=== PATIENT | female | born 1955 | race Caucasian/White ===

== ENCOUNTER 2020-09-04 20:55 | Inpatient (IN) ==
[2020-09-04] MEDS ORDERED: NS 0.9% 1000 ml BAG 1,000 ML IV ONE ×2 (21:24→22:24)
[2020-09-04 21:43] LABS: Hematocrit 33 % (35-47); Hemoglobin 11.1 g/dL (12.0-16.0); Mean Corpuscular HGB Conc 34 g/dL (31-36); Mean Corpuscular Hemoglobin 36 pg (27-31); Mean Corpuscular Volume 108 fL (80-97); Mean Platelet Volume 6.5 fL (7.4-10.4); Platelet Count 164 10^3/uL (150-450); Red Blood Count 3.07 10^6 /uL (3.70-4.87); Red Cell Distribution Width 14 % (10-15)
[2020-09-04 21:56] LABS: ALT 18 U/L (7-52); AST 42 U/L (13-39); Albumin 3.2 g/dL (3.2-5.2); Alcohol, S < 10 mg/dL (<10); Alkaline Phosphatase 189 U/L (35-149); Anion Gap 14 mmol/L (2-11); Blood Urea Nitrogen 27 mg/dL (6-24); CO2 Carbon Dioxide 23 mmol/L (22-32); Calcium 9.3 mg/dL (8.6-10.3); Chloride 103 mmol/L (101-111); Creatine Kinase 79 U/L (10-223); EGFR African American 80.1 (>60); EGFR Non-African American 66.2 (>60); Globulin 3.3 g/dL (2-4); Glucose 134 mg/dL (70-100); Magnesium 1.4 mg/dL (1.9-2.7); Sodium 140 mmol/L (135-145); Total Protein 6.5 g/dL (6.4-8.9)
[2020-09-04 21:57] LABS: ABS Basophils 0.1 10^3/ul (0-0.2); ABS Lymphocytes 1.3 10^3/ul (1.0-4.8); ABS Monocytes 0.8 10^3/ul (0-0.8); ABS Neutrophils 9.8 10^3/ul (1.5-7.7); Eosinophil % 0.2 %; Lymphocyte % 11.2 %; Nucleated Red Blood Cells % 0.1
[2020-09-04 21:59] LABS: Troponin I 0.01 ng/mL (<0.03)
[2020-09-04 22:01] LABS: CKMB ng/mL 2.5 ng/mL (0.6-6.3)
[2020-09-04 22:12] LABS: TSH Ultra Thyroid Stim Horm 6.11 mcIU/mL (0.34-5.60)
[2020-09-04] MEDS ORDERED: Magnesium Sulfate 2 gm BAG 2 GM/50 ML BAG IVPB ONE (22:25)
[2020-09-04 23:15] LABS: Urine Appearance Clear; Urine Bilirubin Negative (Negative); Urine Blood Negative (Negative); Urine Color Amber; Urine Glucose Negative (Negative); Urine Ketones Trace (Negative); Urine Nitrite Negative (Negative); Urine Protein Negative (Negative); Urine Specific Gravity 1.018 (1.002-1.030); Urine Urobilinogen Positive (Negative)
[2020-09-04 23:53] LABS: Activated Partial Thrombo Time 27.8 seconds (26.0-38.0); INR 1.05 (0.82-1.09)
[2020-09-05 00:11] LABS: Acetaminophen < 15 mcg/mL; Salicylate < 2.50 mg/dL (<30)
[2020-09-05 02:47] LABS: C Reactive Protein 28.64 mg/L (<8.01)
[2020-09-05] MEDS ORDERED: Lactated Ringers 1000 ml BAG 1,000 ML IV SCH (03:00)
[2020-09-05 03:27] LABS: Urine Benzodiazepine Screen Presumptive Positive (None Detect); Urine Cannabinoids Screen None Detected (None Detect); Urine Opiates Screen None Detected (None Detect)
[2020-09-05 03:40] LABS: Erythrocyte Sed Rate 28 mm/Hr (0-29)
[2020-09-05 04:00] LABS: Vitamin B12 1286 pg/mL (180-914)
[2020-09-05] MEDS ORDERED: Lorazepam PYXIS KEY ONE ×3 (04:29→17:19)
[2020-09-05] MEDS: LORazepam 2 mg VIAL 1 ml IV PUSH SCH ×3 (04:32→17:22)
[2020-09-05] MEDS: Multivitamins/Minerals TAB PO SCH ×2 (04:32→11:28)
[2020-09-05 05:22] LABS: ABS Basophils 0.1 10^3/ul (0-0.2); ABS Lymphocytes 1.4 10^3/ul (1.0-4.8); ABS Monocytes 0.7 10^3/ul (0-0.8); ABS Neutrophils 8.2 10^3/ul (1.5-7.7); Eosinophil % 0.2 %; Hematocrit 30 % (35-47); Hemoglobin 10.1 g/dL (12.0-16.0); Lymphocyte % 13.5 %; Mean Corpuscular HGB Conc 34 g/dL (31-36); Mean Corpuscular Hemoglobin 37 pg (27-31); Mean Corpuscular Volume 109 fL (80-97); Platelet Count 143 10^3/uL (150-450); Red Blood Count 2.75 10^6 /uL (3.70-4.87); Red Cell Distribution Width 14 % (10-15); White Blood Count 10.5 10^3/uL (3.5-10.8)
[2020-09-05 05:36] LABS: Albumin 2.9 g/dL (3.2-5.2); Calcium 8.1 mg/dL (8.6-10.3); EGFR African American 110.7 (>60); EGFR Non-African American 91.5 (>60); Globulin 2.9 g/dL (2-4); Potassium 3.4 mmol/L (3.5-5.0); Total Protein 5.8 g/dL (6.4-8.9)
[2020-09-05] MEDS ORDERED: Fluticasone NASAL SPRAY 50MCG 16 gm SPRAY BTL INTRANASAL PRN (05:58)
[2020-09-05] MEDS ORDERED: Ondansetron ODT 4 mg TAB 4 MG TAB PO PRN (05:58)
[2020-09-05] MEDS ORDERED: Thiamine 100 MG/ML 2 ml VIAL 250 MG in NS 0.9% 100 ml BAG 100 ML IV SCH (06:00)
[2020-09-05] MEDS ORDERED: Calcium Carb (TUMS) 500 mg CHEW TAB PO PRN (06:08)
[2020-09-05] MEDS ORDERED: Potassium Chlor 20 meq TAB.ER PO ONE (07:00)
[2020-09-05] MEDS ORDERED: Azithromycin 500 mg/250 ml NS 500 MG/250 ML BAG IVPB SCH (07:30)
[2020-09-05] MEDS: cefTRIAXone 1 gm/50 mL NS BAG 1 GM/50 ML BAG IVPB SCH (07:36)
[2020-09-05 07:48] LABS: Magnesium 1.9 mg/dL (1.9-2.7)
[2020-09-05 08:23] LABS: Free T3 3.1 pg/mL (2.5-3.9)
[2020-09-05] MEDS: Enoxaparin 40 MG/0.4 ML SYR SUBCUT SCH (11:28)
[2020-09-05] MEDS: Polyethyl Glycol/Propylene Gly OPHTH.SOLN BOTH EYES SCH (11:37)
[2020-09-05] MEDS: Thiamine 100 MG/ML 2 ml VIAL 500 MG in NS 0.9% 250 ml 250 ML IV SCH ×2 (15:37→22:19)
[2020-09-05] MEDS: Potassium Chlor 20 meq TAB.ER PO SCH (18:15)
[2020-09-06 05:27] LABS: ABS Eosinophils 0.1 10^3/ul (0-0.6); ABS Lymphocytes 1.7 10^3/ul (1.0-4.8); ABS Monocytes 0.6 10^3/ul (0-0.8); ABS Neutrophils 4.7 10^3/ul (1.5-7.7); Eosinophil % 1.5 %; Hematocrit 30 % (35-47); Lymphocyte % 23.3 %; Mean Corpuscular HGB Conc 34 g/dL (31-36); Mean Corpuscular Hemoglobin 37 pg (27-31); Mean Corpuscular Volume 109 fL (80-97); Mean Platelet Volume 6.8 fL (7.4-10.4); Nucleated Red Blood Cells % 0.1; Platelet Count 143 10^3/uL (150-450); Red Blood Count 2.71 10^6 /uL (3.70-4.87); Red Cell Distribution Width 14 % (10-15); White Blood Count 7.1 10^3/uL (3.5-10.8)
[2020-09-06 05:42] LABS: Albumin 2.7 g/dL (3.2-5.2); Albumin/Globulin Ratio 0.9 (1-3); Calcium 8.2 mg/dL (8.6-10.3); EGFR African American 137.1 (>60); EGFR Non-African American 113.3 (>60); Globulin 2.9 g/dL (2-4); Potassium 3.3 mmol/L (3.5-5.0); Total Bilirubin 0.8 mg/dL (0.2-1.0); Total Protein 5.6 g/dL (6.4-8.9)
[2020-09-06] MEDS ORDERED: Potassium Chlor 10 meq TAB PO ONE (07:35)
[2020-09-06 09:35] LABS: Free T4 1.18 ng/dL (0.61-1.12)
[2020-09-06] MEDS: Potassium Chlor 20 meq TAB.ER PO SCH (10:00)
[2020-09-06] MEDS: Thiamine 100 MG/ML 2 ml VIAL 500 MG in NS 0.9% 250 ml 250 ML IV SCH ×3 (10:00→21:24)
[2020-09-06] MEDS: Multivitamins/Minerals TAB PO SCH (10:01)
[2020-09-06] MEDS: Polyethyl Glycol/Propylene Gly OPHTH.SOLN BOTH EYES SCH (10:02)
[2020-09-06] MEDS: Enoxaparin 40 MG/0.4 ML SYR SUBCUT SCH (10:02)
[2020-09-06] MEDS: cefTRIAXone 1 gm/50 mL NS BAG 1 GM/50 ML BAG IVPB SCH (10:22)
[2020-09-07 07:02] LABS: ABS Basophils 0.1 10^3/ul (0-0.2); ABS Eosinophils 0.1 10^3/ul (0-0.6); ABS Lymphocytes 1.5 10^3/ul (1.0-4.8); ABS Monocytes 0.5 10^3/ul (0-0.8); ABS Neutrophils 4.4 10^3/ul (1.5-7.7); Eosinophil % 1.5 %; Hematocrit 30 % (35-47); Hemoglobin 10.2 g/dL (12.0-16.0); Lymphocyte % 22.7 %; Mean Corpuscular HGB Conc 34 g/dL (31-36); Mean Corpuscular Hemoglobin 37 pg (27-31); Mean Corpuscular Volume 108 fL (80-97); Mean Platelet Volume 6.9 fL (7.4-10.4); Nucleated Red Blood Cells % 0.1; Platelet Count 157 10^3/uL (150-450); Red Cell Distribution Width 14 % (10-15); White Blood Count 6.6 10^3/uL (3.5-10.8)
[2020-09-07 07:23] LABS: Calcium 8.4 mg/dL (8.6-10.3); EGFR Non-African American 82.6 (>60); Potassium 3.4 mmol/L (3.5-5.0)
[2020-09-07] MEDS: Enoxaparin 40 MG/0.4 ML SYR SUBCUT SCH (08:29)
[2020-09-07] MEDS: Multivitamins/Minerals TAB PO SCH (08:29)
[2020-09-07] MEDS: Polyethyl Glycol/Propylene Gly OPHTH.SOLN BOTH EYES SCH (08:29)
[2020-09-07] MEDS: Potassium Chlor 20 meq TAB.ER PO SCH (08:29)
[2020-09-07] MEDS: Thiamine 100 MG/ML 2 ml VIAL 500 MG in NS 0.9% 250 ml 250 ML IV SCH ×2 (08:29→16:11)
[2020-09-07] MEDS ORDERED: Potassium Chlor 20 meq TAB.ER PO ONE (10:21)
[2020-09-08 06:13] LABS: Calcium 8.6 mg/dL (8.6-10.3); EGFR African American 123.8 (>60); EGFR Non-African American 102.3 (>60); Potassium 3.7 mmol/L (3.5-5.0)
[2020-09-08 06:53] LABS: ABS Eosinophils 0.1 10^3/ul (0-0.6); ABS Lymphocytes 1.5 10^3/ul (1.0-4.8); ABS Monocytes 0.7 10^3/ul (0-0.8); ABS Neutrophils 4.7 10^3/ul (1.5-7.7); Eosinophil % 1.7 %; Hematocrit 30 % (35-47); Hemoglobin 10.3 g/dL (12.0-16.0); Lymphocyte % 21.1 %; Mean Corpuscular HGB Conc 34 g/dL (31-36); Mean Corpuscular Hemoglobin 37 pg (27-31); Mean Corpuscular Volume 108 fL (80-97); Nucleated Red Blood Cells % 0.1; Platelet Count 186 10^3/uL (150-450); Red Blood Count 2.78 10^6 /uL (3.70-4.87); Red Cell Distribution Width 15 % (10-15)
[2020-09-08] MEDS: Enoxaparin 40 MG/0.4 ML SYR SUBCUT SCH (09:15)
[2020-09-08] MEDS: Multivitamins/Minerals TAB PO SCH (09:15)
[2020-09-08] MEDS: Polyethyl Glycol/Propylene Gly OPHTH.SOLN BOTH EYES SCH (09:15)
[2020-09-08] MEDS: Potassium Chlor 20 meq TAB.ER PO SCH (09:15)
[2020-09-08] MEDS ORDERED: LORazepam 2 mg VIAL 1 ml IV PUSH ONE (22:35)
[2020-09-08] MEDS ORDERED: Lorazepam PYXIS KEY PRN (22:35)
[2020-09-08] MEDS ORDERED: LORazepam 2 mg VIAL 1 ml ONE (22:38)
[2020-09-09] MEDS: Polyethyl Glycol/Propylene Gly OPHTH.SOLN BOTH EYES SCH (09:21)
[2020-09-09] MEDS: Multivitamins/Minerals TAB PO SCH (09:23)
[2020-09-09] MEDS: Enoxaparin 40 MG/0.4 ML SYR SUBCUT SCH (09:24)
[2020-09-09] MEDS: Potassium Chlor 20 meq TAB.ER PO SCH (09:24)
[2020-09-09] MEDS ORDERED: Nicotine GUM 2MG FRUIT FLAVOR PO PRN (14:26)
[2020-09-10] MEDS: Magnesium Hydroxide LIQ 30 ML UDC PO PRN ×2 (08:05→20:06)
[2020-09-10] MEDS: Nicotine PATCH 21 MG/24 HR PATCH TRANSDERM SCH (08:07)
[2020-09-10] MEDS: Enoxaparin 40 MG/0.4 ML SYR SUBCUT SCH (08:07)
[2020-09-10] MEDS: Multivitamins/Minerals TAB PO SCH (08:08)
[2020-09-10] MEDS: Potassium Chlor 20 meq TAB.ER PO SCH (08:08)
[2020-09-10] MEDS: Polyethyl Glycol/Propylene Gly OPHTH.SOLN BOTH EYES SCH (08:15)
[2020-09-10] MEDS: Senna TAB 8.6 mg TAB PO PRN (20:06)
[2020-09-11 05:01] LABS: Hematocrit 30 % (35-47); Hemoglobin 10.2 g/dL (12.0-16.0); Mean Corpuscular HGB Conc 34 g/dL (31-36); Mean Corpuscular Hemoglobin 36 pg (27-31); Mean Corpuscular Volume 107 fL (80-97); Mean Platelet Volume 7.4 fL (7.4-10.4); Platelet Count 288 10^3/uL (150-450); Red Cell Distribution Width 15 % (10-15); White Blood Count 9.3 10^3/uL (3.5-10.8)
[2020-09-11 05:14] LABS: C Reactive Protein 27.5 mg/L (<8.01); Calcium 8.9 mg/dL (8.6-10.3); EGFR African American 103.3 (>60); EGFR Non-African American 85.4 (>60); Magnesium 1.6 mg/dL (1.9-2.7); Potassium 3.5 mmol/L (3.5-5.0)
[2020-09-11] MEDS: Nicotine PATCH 21 MG/24 HR PATCH TRANSDERM SCH (08:33)
[2020-09-11] MEDS: Enoxaparin 40 MG/0.4 ML SYR SUBCUT SCH (08:33)
[2020-09-11] MEDS: Multivitamins/Minerals TAB PO SCH (08:34)
[2020-09-11] MEDS: Potassium Chlor 20 meq TAB.ER PO SCH ×2 (08:34→08:46)
[2020-09-11] MEDS: Polyethyl Glycol/Propylene Gly OPHTH.SOLN BOTH EYES SCH (08:37)
[2020-09-11 10:49] LABS: Urine Appearance Cloudy; Urine Bilirubin Negative (Negative); Urine Blood Negative (Negative); Urine Color Amber; Urine Glucose Negative (Negative); Urine Ketones Negative (Negative); Urine Nitrite Negative (Negative); Urine Protein Negative (Negative); Urine Specific Gravity 1.015 (1.002-1.030); Urine Urobilinogen Negative (Negative)
[2020-09-11] MEDS: Magnesium Hydroxide LIQ 30 ML UDC PO PRN (16:00)
[2020-09-11] MEDS ORDERED: Magnesium Hydroxide LIQ 30 ML UDC PO PRN (18:26)
[2020-09-11] MEDS ORDERED: Senna TAB 8.6 mg TAB PO PRN (18:26)
[2020-09-11] MEDS: Senna TAB 8.6 mg TAB PO PRN (22:03)
[2020-09-12 04:41] LABS: HIV 4th Generation Nonreactive (Nonreactive)
[2020-09-12 04:57] LABS: Thyroid Peroxidase Antibodies 0.27 IU/mL (<9)
[2020-09-12] MEDS: Enoxaparin 40 MG/0.4 ML SYR SUBCUT SCH (09:52)
[2020-09-12] MEDS: Polyethyl Glycol/Propylene Gly OPHTH.SOLN BOTH EYES SCH (09:53)
[2020-09-12] MEDS: Nicotine PATCH 21 MG/24 HR PATCH TRANSDERM SCH (09:53)
[2020-09-12] MEDS: Multivitamins/Minerals TAB PO SCH (09:56)
[2020-09-12] MEDS: Potassium Chlor 20 meq TAB.ER PO SCH (09:56)
[2020-09-12 11:23] LABS: TSH Ultra Thyroid Stim Horm 6.86 mcIU/mL (0.34-5.60)
[2020-09-12 11:25] LABS: Free T4 1.06 ng/dL (0.61-1.12)
[2020-09-12] MEDS: Senna TAB 8.6 mg TAB PO PRN (20:16)
[2020-09-12] MEDS: Magnesium Hydroxide LIQ 30 ML UDC PO PRN (20:18)
[2020-09-12 20:50] LABS: Magnesium 1.7 mg/dL (1.9-2.7)
[2020-09-13] MEDS ORDERED: Magnesium Sulfate 2 gm BAG 2 GM/50 ML BAG IVPB ONE (06:20)
[2020-09-13] MEDS: Potassium Chlor 20 meq TAB.ER PO SCH (08:00)
[2020-09-13] MEDS: Multivitamins/Minerals TAB PO SCH (08:00)
[2020-09-13] MEDS: Enoxaparin 40 MG/0.4 ML SYR SUBCUT SCH (08:00)
[2020-09-13] MEDS: Nicotine PATCH 21 MG/24 HR PATCH TRANSDERM SCH (08:01)
[2020-09-13] MEDS: Polyethyl Glycol/Propylene Gly OPHTH.SOLN BOTH EYES SCH (08:08)
[2020-09-14] MEDS: Multivitamins/Minerals TAB PO SCH (10:32)
[2020-09-14] MEDS: Nicotine PATCH 21 MG/24 HR PATCH TRANSDERM SCH (10:32)
[2020-09-14] MEDS: Potassium Chlor 20 meq TAB.ER PO SCH (10:32)
[2020-09-14] MEDS: Enoxaparin 40 MG/0.4 ML SYR SUBCUT SCH (10:33)
[2020-09-14] MEDS: Polyethyl Glycol/Propylene Gly OPHTH.SOLN BOTH EYES SCH (10:33)
[2020-09-14 15:52] VITALS: BP 143/89
[2020-09-18 10:07] LABS: Anti-Glial/Neuronal Nuc Ab-1 A Negative titer (<1:240); Anti-Neuronal Nuclear Ab Type1 Negative titer (<1:240); Anti-Neuronal Nuclear Ab Type2 Negative titer (<1:240); Anti-Neuronal Nuclear Ab Type3 Negative titer (<1:240); CRMP-5 IgG Antibody Negative titer (<1:240); Purkinje Cell Cytoplasm Typ Tr Negative titer (<1:240); Purkinje Cell Cytoplasm Type 1 Negative titer (<1:240); Purkinje Cell Cytoplasm Type 2 Negative titer (<1:240)
== END 2020-09-14 16:15 | DRG 775 ==
LOC: ED 20:55 → MED 09-05 02:06
PROVIDERS: ADMIT Pediatrics; ATTEND Internal Medicine

== ENCOUNTER 2020-09-20 20:35 | Inpatient (IN) ==
[2020-09-20 21:15] LABS: ABS Basophils 0.1 10^3/ul (0-0.2); ABS Eosinophils 0.1 10^3/ul (0-0.6); ABS Lymphocytes 1.9 10^3/ul (1.0-4.8); ABS Monocytes 0.8 10^3/ul (0-0.8); ABS Neutrophils 6.2 10^3/ul (1.5-7.7); Eosinophil % 1.6 %; Hematocrit 27 % (35-47); Hemoglobin 9.1 g/dL (12.0-16.0); Lymphocyte % 20.5 %; Mean Corpuscular HGB Conc 33 g/dL (31-36); Mean Corpuscular Hemoglobin 36 pg (27-31); Mean Corpuscular Volume 109 fL (80-97); Mean Platelet Volume 7.2 fL (7.4-10.4); Platelet Count 340 10^3/uL (150-450); Red Blood Count 2.49 10^6 /uL (3.70-4.87); Red Cell Distribution Width 15 % (10-15); White Blood Count 9.2 10^3/uL (3.5-10.8)
[2020-09-20 21:21] LABS: INR 1.26 (0.82-1.09)
[2020-09-20 21:31] LABS: ALT 18 U/L (7-52); AST 37 U/L (13-39); Albumin 2.5 g/dL (3.2-5.2); Albumin/Globulin Ratio 0.8 (1-3); Alkaline Phosphatase 164 U/L (35-149); Blood Urea Nitrogen 23 mg/dL (6-24); CO2 Carbon Dioxide 21 mmol/L (22-32); Calcium 8.3 mg/dL (8.6-10.3); EGFR African American 80.1 (>60); EGFR Non-African American 66.2 (>60); Glucose 109 mg/dL (70-100); Magnesium 1.2 mg/dL (1.9-2.7); Potassium 3.4 mmol/L (3.5-5.0); Sodium 140 mmol/L (135-145); Total Protein 5.5 g/dL (6.4-8.9)
[2020-09-20 21:37] LABS: Anion Gap 6 mmol/L (2-11); Chloride 113 mmol/L (101-111)
[2020-09-20 22:44] LABS: Urine Appearance Clear; Urine Bilirubin Negative (Negative); Urine Blood 1+ (Negative); Urine Color Amber; Urine Glucose Negative (Negative); Urine Ketones Negative (Negative); Urine Nitrite Negative (Negative); Urine Protein 1+(30 mg/dL) (Negative); Urine Specific Gravity 1.025 (1.002-1.030); Urine Urobilinogen Negative (Negative)
[2020-09-20 23:14] LABS: Urine Bacteria Absent (Absent); Urine Red Blood Cell 2+(6-10/hpf) (Absent); Urine Squamous Epithelial Cell Present (Absent); Urine White Blood Cell Trace(0-5/hpf) (Absent)
[2020-09-20] MEDS ORDERED: Magnesium Sulf 4 GM/100 ML IV 4,000 MG/100 ML BAG IVPB ONE (23:28)
[2020-09-20 23:35] LABS: Urine Benzodiazepine Screen Presumptive Positive (None Detect); Urine Cannabinoids Screen None Detected (None Detect); Urine Opiates Screen None Detected (None Detect)
[2020-09-21 00:08] LABS: C Reactive Protein 12.93 mg/L (<8.01)
[2020-09-21] MEDS ORDERED: Ondansetron ODT 4 mg TAB 4 MG TAB PO PRN (00:18)
[2020-09-21] MEDS ORDERED: Magnesium Hydroxide LIQ 30 ML UDC PO PRN (00:18)
[2020-09-21] MEDS ORDERED: Senna TAB 8.6 mg TAB PO PRN (00:18)
[2020-09-21 00:20] LABS: Alcohol, S < 10 mg/dL (<10)
[2020-09-21] MEDS ORDERED: LORazepam 2 mg VIAL 1 ml IV PUSH ONE (01:54)
[2020-09-21] MEDS ORDERED: Lorazepam PYXIS KEY PRN (01:54)
[2020-09-21] MEDS ORDERED: LORazepam 2 mg VIAL 1 ml ONE (01:55)
[2020-09-21] MEDS ORDERED: Enoxaparin 40 MG/0.4 ML SYR SUBCUT SCH (06:00)
[2020-09-21] MEDS: Potassium Chlor 20 meq TAB.ER PO SCH (09:11)
[2020-09-21 10:19] LABS: PCO2 Arterial 30 mmHg (35-45); PO2 Arterial 96 mmHg (80-100)
[2020-09-21 10:26] LABS: ABS Eosinophils 0.2 10^3/ul (0-0.6); ABS Lymphocytes 1.8 10^3/ul (1.0-4.8); ABS Monocytes 0.5 10^3/ul (0-0.8); ABS Neutrophils 5.6 10^3/ul (1.5-7.7); Eosinophil % 2.5 %; Hematocrit 31 % (35-47); Hemoglobin 10.4 g/dL (12.0-16.0); Lymphocyte % 22.7 %; Mean Corpuscular HGB Conc 33 g/dL (31-36); Mean Corpuscular Hemoglobin 36 pg (27-31); Mean Corpuscular Volume 109 fL (80-97); Mean Platelet Volume 7.3 fL (7.4-10.4); Platelet Count 357 10^3/uL (150-450); Red Blood Count 2.89 10^6 /uL (3.70-4.87); Red Cell Distribution Width 14 % (10-15); White Blood Count 8.1 10^3/uL (3.5-10.8)
[2020-09-21 10:42] LABS: Blood Urea Nitrogen 16 mg/dL (6-24); CO2 Carbon Dioxide 24 mmol/L (22-32); Calcium 8.5 mg/dL (8.6-10.3); Chloride 110 mmol/L (101-111); EGFR African American 112.7 (>60); EGFR Non-African American 93.1 (>60); Glucose 102 mg/dL (70-100); Magnesium 2.3 mg/dL (1.9-2.7); Sodium 140 mmol/L (135-145)
[2020-09-21 12:27] LABS: Anion Gap 6 mmol/L (2-11)
[2020-09-22 06:21] LABS: Calcium 8.5 mg/dL (8.6-10.3); EGFR African American 95.3 (>60); EGFR Non-African American 78.8 (>60); Magnesium 1.8 mg/dL (1.9-2.7); Potassium 3.4 mmol/L (3.5-5.0)
[2020-09-22] MEDS ORDERED: Magnesium Sulfate 2 gm BAG 2 GM/50 ML BAG IVPB ONE (07:05)
[2020-09-22] MEDS ORDERED: Potassium Chlor 20 meq TAB.ER PO ONE (08:00)
[2020-09-22] MEDS: Potassium Chlor 20 meq TAB.ER PO SCH (10:57)
[2020-09-22] MEDS ORDERED: methylPREDNISolone SOD SUCC 1000 MG ML VIAL IVPB ONE (11:00)
[2020-09-22] MEDS ORDERED: methylPREDNISolone SOD SUCC 1,000 MG in NS 0.9% 250 ml 250 ML IVPB ONE (12:00)
[2020-09-22] MEDS ORDERED: LORazepam 2 mg VIAL 1 ml IV PUSH ONE ×2 (12:01→12:02)
[2020-09-22] MEDS ORDERED: Lorazepam PYXIS KEY PRN ×2 (12:01→12:02)
[2020-09-22] MEDS ORDERED: Haloperidol 5 mg/ml SDV IV/IM 5 MG/ML AMP IM ONE (16:37)
[2020-09-22] MEDS: Multivitamins/Minerals TAB PO SCH (16:46)
[2020-09-22] MEDS ORDERED: Haloperidol 5 mg/ml SDV IV/IM 5 MG/ML AMP IV SLOW PU PRN (18:01)
[2020-09-22] MEDS ORDERED: Enoxaparin 40 MG/0.4 ML SYR SUBCUT ONE (18:40)
[2020-09-23 05:44] LABS: Calcium 8.8 mg/dL (8.6-10.3); EGFR African American 105.1 (>60); EGFR Non-African American 86.8 (>60); Potassium 3.7 mmol/L (3.5-5.0)
[2020-09-23] MEDS: Multivitamins/Minerals TAB PO SCH (07:36)
[2020-09-23] MEDS: Potassium Chlor 20 meq TAB.ER PO SCH (07:37)
[2020-09-23] MEDS ORDERED: methylPREDNISolone SOD SUCC 1,000 MG in NS 0.9% 100 ml BAG 100 ML IVPB ONE (08:00)
[2020-09-23 16:47] LABS: INR 1.06 (0.82-1.09)
[2020-09-24] MEDS ORDERED: Lorazepam PYXIS KEY PRN (08:33)
[2020-09-24] MEDS ORDERED: Lorazepam PYXIS KEY ONE (08:57)
[2020-09-24] MEDS ORDERED: LORazepam 2 mg VIAL 1 ml ONE (08:58)
[2020-09-24] MEDS: LORazepam 2 mg VIAL 1 ml IV PUSH ONE ×2 (09:00→09:02)
[2020-09-24] MEDS ORDERED: Midazolam 10 mg/10 ml VIAL 1 mg/ml 10 ml VIAL (10 mg) IV SLOW PU ONE (09:15)
[2020-09-24] MEDS: Multivitamins/Minerals TAB PO SCH (11:35)
[2020-09-24] MEDS: Potassium Chlor 20 meq TAB.ER PO SCH (11:38)
[2020-09-24 13:16] LABS: Body Fluid Source Cerebral Spinal
[2020-09-24 13:31] LABS: CSF Glucose 76 mg/dL (40-70)
[2020-09-24 14:01] LABS: Body Fluid Appearance Clear; Body Fluid Color Colorless; CSF Tube # 3
[2020-09-24 14:09] LABS: Body Fluid WBC 15.3 /mcL
[2020-09-24 14:11] LABS: Body Fluid Total Cells Counted 6
[2020-09-24] MEDS ORDERED: Enoxaparin 40 MG/0.4 ML SYR SUBCUT ONE (15:04)
[2020-09-24] MEDS ORDERED: NS 0.9% 1000 ml BAG 1,000 ML IV SCH (15:15)
[2020-09-24] MEDS: NS 0.9% 1000 ml BAG 1,000 ML IV SCH (15:21)
[2020-09-24] MEDS: Thiamine 100 MG/ML 2 ml VIAL 500 MG in NS 0.9% 250 ml 250 ML IV SCH (22:23)
[2020-09-25] MEDS: NS 0.9% 1000 ml BAG 1,000 ML IV SCH (03:44)
[2020-09-25] MEDS: Thiamine 100 MG/ML 2 ml VIAL 500 MG in NS 0.9% 250 ml 250 ML IV SCH ×2 (05:43→16:09)
[2020-09-25] MEDS: Potassium Chlor 20 meq TAB.ER PO SCH (09:24)
[2020-09-25] MEDS: Multivitamins/Minerals TAB PO SCH (09:33)
[2020-09-25] MEDS: Midazolam 10 mg/10 ml VIAL 1 mg/ml 10 ml VIAL (10 mg) IV SLOW PU ONE ×2 (10:10→10:52)
[2020-09-25] MEDS ORDERED: methylPREDNISolone 125 mg 250 MG in NS 0.9% 100 ml BAG 100 ML IV ONE (12:00)
[2020-09-25] MEDS: Enoxaparin 40 MG/0.4 ML SYR SUBCUT SCH (22:22)
[2020-09-26] MEDS: Potassium Chlor 20 meq TAB.ER PO SCH (09:00)
[2020-09-26] MEDS: Multivitamins/Minerals TAB PO SCH (09:01)
[2020-09-26] MEDS ORDERED: methylPREDNISolone SOD SUCC 1000 MG ML VIAL IVPB SCH (12:30)
[2020-09-26 14:33] LABS: CSF VDRL Negative (Negative)
[2020-09-26 14:44] LABS: HSV 1 PCR, CSF Negative (Negative); HSV 2 PCR, CSF Negative (Negative)
[2020-09-26] MEDS: methylPREDNISolone SOD SUCC 1,000 MG in NS 0.9% 250 ml 250 ML IVPB SCH (17:08)
[2020-09-26] MEDS: Enoxaparin 40 MG/0.4 ML SYR SUBCUT SCH ×2 (23:17→23:21)
[2020-09-27] MEDS: Potassium Chlor 20 meq TAB.ER PO SCH (08:19)
[2020-09-27] MEDS: Multivitamins/Minerals TAB PO SCH (08:20)
[2020-09-27 12:41] LABS: B. garinii/B. afzellii PCR Negative (Negative); Lyme Disease Source CSF
[2020-09-27] MEDS: methylPREDNISolone SOD SUCC 1,000 MG in NS 0.9% 250 ml 250 ML IVPB SCH (13:51)
[2020-09-27] MEDS: Enoxaparin 40 MG/0.4 ML SYR SUBCUT SCH (21:49)
[2020-09-28] MEDS: Multivitamins/Minerals TAB PO SCH (08:57)
[2020-09-28] MEDS: Potassium Chlor 20 meq TAB.ER PO SCH (09:00)
[2020-09-28] MEDS: Enoxaparin 40 MG/0.4 ML SYR SUBCUT SCH (22:12)
[2020-09-29] MEDS: Multivitamins/Minerals TAB PO SCH ×2 (09:45→09:49)
[2020-09-29] MEDS: Potassium Chlor 20 meq TAB.ER PO SCH ×2 (09:45→09:49)
[2020-09-29] MEDS ORDERED: Lorazepam PYXIS KEY PRN (10:48)
[2020-09-29] MEDS ORDERED: LORazepam 2 mg VIAL 1 ml IV PUSH ONE (10:48)
[2020-09-29 11:24] LABS: Hematocrit 36 % (35-47); Hemoglobin 11.9 g/dL (12.0-16.0); Mean Corpuscular HGB Conc 33 g/dL (31-36); Mean Corpuscular Hemoglobin 35 pg (27-31); Mean Corpuscular Volume 106 fL (80-97); Mean Platelet Volume 7.9 fL (7.4-10.4); Platelet Count 379 10^3/uL (150-450); Red Blood Count 3.41 10^6 /uL (3.70-4.87); Red Cell Distribution Width 14 % (10-15); White Blood Count 15.1 10^3/uL (3.5-10.8)
[2020-09-29 11:35] LABS: Albumin 3.3 g/dL (3.2-5.2); Albumin/Globulin Ratio 1.2 (1-3); Calcium 9.2 mg/dL (8.6-10.3); EGFR African American 114.8 (>60); EGFR Non-African American 94.8 (>60); Globulin 2.8 g/dL (2-4); Potassium 3.4 mmol/L (3.5-5.0); Total Bilirubin 0.7 mg/dL (0.2-1.0); Total Protein 6.1 g/dL (6.4-8.9)
[2020-09-29 12:02] LABS: ABS Basophils 0.1 10^3/ul (0-0.2); ABS Lymphocytes 3.4 10^3/ul (1.0-4.8); ABS Monocytes 1.3 10^3/ul (0-0.8); ABS Neutrophils 10.1 10^3/ul (1.5-7.7); Eosinophil % 0.2 %; Lymphocyte % 22.7 %; Nucleated Red Blood Cells % 0.1
[2020-09-29 17:17] LABS: AGNA-1, CSF Negative titer (<1:2); Amphiphysin Ab, CSF Negative titer (<1:2); CRMP-5-IgG, CSF Negative titer (<1:2); PCA-1, CSF Negative titer (<1:2); PCA-2, CSF Negative titer (<1:2); PCA-Tr, CSF Negative titer (<1:2)
[2020-09-29 19:18] LABS: CSF Angiotension Conv Enz 0.9 U/L (0.0-2.5)
[2020-09-29] MEDS: Enoxaparin 40 MG/0.4 ML SYR SUBCUT SCH (22:32)
[2020-09-30 06:13] LABS: Calcium 8.8 mg/dL (8.6-10.3); EGFR African American 119.1 (>60); EGFR Non-African American 98.4 (>60); Potassium 3.2 mmol/L (3.5-5.0)
[2020-09-30 06:16] LABS: ABS Eosinophils 0.1 10^3/ul (0-0.6); ABS Lymphocytes 3.1 10^3/ul (1.0-4.8); ABS Neutrophils 6.6 10^3/ul (1.5-7.7); Eosinophil % 0.8 %; Hematocrit 35 % (35-47); Hemoglobin 11.8 g/dL (12.0-16.0); Lymphocyte % 28.9 %; Mean Corpuscular HGB Conc 34 g/dL (31-36); Mean Corpuscular Hemoglobin 36 pg (27-31); Mean Corpuscular Volume 106 fL (80-97); Mean Platelet Volume 7.9 fL (7.4-10.4); Platelet Count 281 10^3/uL (150-450); Red Blood Count 3.31 10^6 /uL (3.70-4.87); Red Cell Distribution Width 14 % (10-15); White Blood Count 10.8 10^3/uL (3.5-10.8)
[2020-09-30] MEDS: Potassium Chlor 20 meq TAB.ER PO SCH (07:32)
[2020-09-30] MEDS: Multivitamins/Minerals TAB PO SCH (07:32)
[2020-09-30 08:07] LABS: Magnesium 1.7 mg/dL (1.9-2.7)
[2020-09-30] MEDS ORDERED: Potassium Chlor 20 meq TAB.ER PO ONE (09:00)
[2020-09-30] MEDS ORDERED: Magnesium Sulfate 2 gm BAG 2 GM/50 ML BAG IVPB ONE (09:37)
[2020-09-30 10:00] LABS: Total Bilirubin 0.9 mg/dL (0.2-1.0)
[2020-09-30 11:14] LABS: Hepatitis B Surface Antigen Nonreactive (Nonreactive)
[2020-09-30 11:19] LABS: Hepatitis A Ab IgM Negative (Negative); Hepatitis B Core IgM Nonreactive (Nonreactive)
[2020-09-30 11:31] LABS: Hepatitis C Antibody Negative (Negative)
[2020-10-01] MEDS: Enoxaparin 40 MG/0.4 ML SYR SUBCUT SCH ×2 (04:21→22:48)
[2020-10-01 05:59] LABS: ABS Basophils 0.2 10^3/ul (0-0.2); ABS Eosinophils 0.1 10^3/ul (0-0.6); ABS Lymphocytes 3.1 10^3/ul (1.0-4.8); ABS Monocytes 0.8 10^3/ul (0-0.8); ABS Neutrophils 9.3 10^3/ul (1.5-7.7); Eosinophil % 0.9 %; Hematocrit 36 % (35-47); Hemoglobin 11.9 g/dL (12.0-16.0); Lymphocyte % 22.8 %; Mean Corpuscular HGB Conc 33 g/dL (31-36); Mean Corpuscular Hemoglobin 35 pg (27-31); Mean Corpuscular Volume 106 fL (80-97); Platelet Count 312 10^3/uL (150-450); Red Blood Count 3.39 10^6 /uL (3.70-4.87); Red Cell Distribution Width 14 % (10-15); White Blood Count 13.6 10^3/uL (3.5-10.8)
[2020-10-01 06:13] LABS: Albumin 3.5 g/dL (3.2-5.2); Albumin/Globulin Ratio 1.3 (1-3); Calcium 8.9 mg/dL (8.6-10.3); EGFR African American 106.9 (>60); EGFR Non-African American 88.3 (>60); Globulin 2.8 g/dL (2-4); Potassium 3.9 mmol/L (3.5-5.0); Total Bilirubin 0.9 mg/dL (0.2-1.0); Total Protein 6.3 g/dL (6.4-8.9)
[2020-10-01] MEDS: Multivitamins/Minerals TAB PO SCH (09:22)
[2020-10-01] MEDS: Potassium Chlor 20 meq TAB.ER PO SCH (09:23)
[2020-10-02 05:29] LABS: ABS Eosinophils 0.2 10^3/ul (0-0.6); ABS Lymphocytes 3.6 10^3/ul (1.0-4.8); ABS Neutrophils 11.4 10^3/ul (1.5-7.7); Eosinophil % 1.3 %; Hematocrit 34 % (35-47); Hemoglobin 11.4 g/dL (12.0-16.0); Lymphocyte % 22.4 %; Mean Corpuscular HGB Conc 34 g/dL (31-36); Mean Corpuscular Hemoglobin 36 pg (27-31); Mean Corpuscular Volume 107 fL (80-97); Mean Platelet Volume 8.4 fL (7.4-10.4); Platelet Count 268 10^3/uL (150-450); Red Blood Count 3.17 10^6 /uL (3.70-4.87); Red Cell Distribution Width 14 % (10-15); White Blood Count 16.2 10^3/uL (3.5-10.8)
[2020-10-02] MEDS: Potassium Chlor 20 meq TAB.ER PO SCH (09:18)
[2020-10-02] MEDS: Multivitamins/Minerals TAB PO SCH (09:19)
[2020-10-02 15:04] LABS: Urine Appearance Cloudy; Urine Bilirubin Negative (Negative); Urine Blood Negative (Negative); Urine Color Amber; Urine Glucose Negative (Negative); Urine Ketones Trace (Negative); Urine Nitrite Negative (Negative); Urine Protein 1+(30 mg/dL) (Negative); Urine Specific Gravity 1.026 (1.002-1.030); Urine Urobilinogen Positive (Negative)
[2020-10-02 15:23] LABS: Urine Bacteria 2+ (Absent); Urine Red Blood Cell 3+(>10/hpf) (Absent); Urine Squamous Epithelial Cell Present (Absent); Urine White Blood Cell 3+(>20/hpf) (Absent)
[2020-10-02] MEDS: cefTRIAXone 1 gm/50 mL NS BAG 1 GM/50 ML BAG IVPB SCH (16:51)
[2020-10-02] MEDS: Enoxaparin 40 MG/0.4 ML SYR SUBCUT SCH (22:22)
[2020-10-03 07:03] LABS: Hematocrit 33 % (35-47); Hemoglobin 11.4 g/dL (12.0-16.0); Mean Corpuscular HGB Conc 34 g/dL (31-36); Mean Corpuscular Hemoglobin 37 pg (27-31); Mean Corpuscular Volume 106 fL (80-97); Mean Platelet Volume 8.4 fL (7.4-10.4); Platelet Count 239 10^3/uL (150-450); Red Blood Count 3.13 10^6 /uL (3.70-4.87); Red Cell Distribution Width 14 % (10-15); White Blood Count 16.6 10^3/uL (3.5-10.8)
[2020-10-03 07:17] LABS: Albumin 3.1 g/dL (3.2-5.2); Albumin/Globulin Ratio 1.1 (1-3); Calcium 8.8 mg/dL (8.6-10.3); EGFR African American 119.1 (>60); EGFR Non-African American 98.4 (>60); Globulin 2.9 g/dL (2-4); Potassium 3.8 mmol/L (3.5-5.0); Total Bilirubin 0.6 mg/dL (0.2-1.0)
[2020-10-03 08:16] LABS: ABS Basophils 0.2 10^3/ul (0-0.2); ABS Eosinophils 0.3 10^3/ul (0-0.6); ABS Lymphocytes 4.1 10^3/ul (1.0-4.8); ABS Monocytes 1.1 10^3/ul (0-0.8); ABS Neutrophils 10.9 10^3/ul (1.5-7.7); Eosinophil % 1.7 %; Lymphocyte % 24.8 %; Nucleated Red Blood Cells % 0.1
[2020-10-03] MEDS: Potassium Chlor 20 meq TAB.ER PO SCH (08:23)
[2020-10-03] MEDS: Multivitamins/Minerals TAB PO SCH ×2 (08:32→08:52)
[2020-10-03] MEDS: cefTRIAXone 1 gm/50 mL NS BAG 1 GM/50 ML BAG IVPB SCH (16:16)
[2020-10-03] MEDS: Enoxaparin 40 MG/0.4 ML SYR SUBCUT SCH (21:37)
[2020-10-04 06:10] LABS: ABS Basophils 0.1 10^3/ul (0-0.2); ABS Eosinophils 0.3 10^3/ul (0-0.6); ABS Lymphocytes 3.3 10^3/ul (1.0-4.8); ABS Neutrophils 11.6 10^3/ul (1.5-7.7); Eosinophil % 1.6 %; Hematocrit 35 % (35-47); Hemoglobin 11.6 g/dL (12.0-16.0); Lymphocyte % 20.2 %; Mean Corpuscular HGB Conc 33 g/dL (31-36); Mean Corpuscular Hemoglobin 35 pg (27-31); Mean Corpuscular Volume 107 fL (80-97); Mean Platelet Volume 8.5 fL (7.4-10.4); Platelet Count 227 10^3/uL (150-450); Red Blood Count 3.27 10^6 /uL (3.70-4.87); Red Cell Distribution Width 14 % (10-15); White Blood Count 16.2 10^3/uL (3.5-10.8)
[2020-10-04 06:24] LABS: Albumin 3.3 g/dL (3.2-5.2); Albumin/Globulin Ratio 1.1 (1-3); Calcium 9.1 mg/dL (8.6-10.3); EGFR African American 121.4 (>60); EGFR Non-African American 100.3 (>60); Potassium 3.7 mmol/L (3.5-5.0); Total Bilirubin 0.6 mg/dL (0.2-1.0); Total Protein 6.3 g/dL (6.4-8.9)
[2020-10-04] MEDS: Multivitamins/Minerals TAB PO SCH (07:20)
[2020-10-04] MEDS: Potassium Chlor 20 meq TAB.ER PO SCH (07:20)
[2020-10-04 11:14] VITALS: BP 138/76
== END 2020-10-04 14:30 | DRG 641 ==
LOC: MEDTELE 20:35 → ED 20:35 → MEDTELE 09-21 03:31 → MED 09-25 23:42
PROVIDERS: ADMIT Internal Medicine; ATTEND Student in an Organized Health Care Education/Training Program

== ENCOUNTER 2021-03-22 13:42 | Observation (INO) ==
[2021-03-22] MEDS ORDERED: Ondansetron ODT 4 mg TAB 4 MG TAB PO PRN (14:39)
[2021-03-22] MEDS ORDERED: Lactulose 30 ml UDC PO PRN (14:39)
[2021-03-22] MEDS ORDERED: Magnesium Hydroxide LIQ 30 ML UDC PO PRN (14:39)
[2021-03-22] MEDS ORDERED: Ondansetron 4 mg VIAL 2 MG/ML 2 ml VIAL IV PRN (14:39)
[2021-03-22] MEDS ORDERED: Fluticasone NASAL SPRAY 50MCG 16 gm SPRAY BTL INTRANASAL PRN (14:52)
[2021-03-22] MEDS ORDERED: Senna TAB 8.6 mg TAB PO PRN (14:52)
[2021-03-22] MEDS ORDERED: guaiFENesin 100 mg/5 ml LIQ unit dose cup PO PRN (14:52)
[2021-03-22] MEDS ORDERED: Lactated Ringers 1000 ml BAG 1,000 ML IV SCH (15:00)
[2021-03-22] MEDS ORDERED: Thiamine 100 MG/ML 2 ml VIAL (200 mg) IM ONE (18:03)
[2021-03-22] MEDS: Magnesium Hydroxide LIQ 30 ML UDC PO SCH (21:29)
[2021-03-23] MEDS ORDERED: Buffered Lidocaine 1% SYRIN 1 ml INTRADERM ONE (06:00)
[2021-03-23] MEDS ORDERED: Lactated Ringers 1000 ml BAG 1,000 ML IV SCH (06:00)
[2021-03-23 06:45] LABS: INR 1.13 (0.86-1.15)
[2021-03-23 06:49] LABS: Calcium 8.6 mg/dL (8.6-10.3); eGFR CKD-EPI 53.1 (>60)
[2021-03-23] MEDS: Dextran 70/Hypromellose Tears Eye Drops 15 ml BTL (for Artificials Tears) BOTH EYES SCH (08:16)
[2021-03-23] MEDS: Multivitamins/Minerals TAB PO SCH (08:17)
[2021-03-23] MEDS: DULoxetine DR 20 mg CAP PO SCH (08:17)
[2021-03-23] MEDS: Magnesium Hydroxide LIQ 30 ML UDC PO SCH ×2 (08:20→21:43)
[2021-03-23] MEDS ORDERED: Vitamin THERAPEUTIC TAB PO SCH (09:00)
[2021-03-23] MEDS ORDERED: Potassium Chlor 10 meq TAB PO SCH (09:00)
[2021-03-23] MEDS: ceFAZolin 2 GM in NS PREMIX 2 GM/100 ML BAG IVPB ONE ×2 (12:54→16:30)
[2021-03-23] MEDS ORDERED: Propofol 10 MG/ML 20 ML BTL ONE (13:23)
[2021-03-23] MEDS ORDERED: Lidocaine 2% PF 5 ML VIAL ONE (13:23)
[2021-03-23] MEDS ORDERED: Ondansetron 4 mg VIAL 2 MG/ML 2 ml VIAL ONE ×2 (13:23→13:58)
[2021-03-23] MEDS ORDERED: Ketamine HCL 50 mg/ml 10 ml VIAL (500 MG) ONE (13:24)
[2021-03-23] MEDS ORDERED: Midazolam 5 mg/5 ml VIAL 1 mg/ml 5 ml VIAL (5 mg) ONE (13:24)
[2021-03-23] MEDS ORDERED: fentaNYL 100 mcg/2 ml 50 MCG/ML VIAL ONE ×2 (13:24→13:57)
[2021-03-23] MEDS ORDERED: NS 0.9% 1000 ml BAG 1,000 ML IV SCH (14:00)
[2021-03-23] MEDS ORDERED: EPHEDrine (Pressors) 50 MG/ML VIAL ONE ×2 (14:32→15:19)
[2021-03-23] MEDS ORDERED: Glycopyrrolate IV 0.2 MG/ML 1 ML VIAL ONE (15:20)
[2021-03-23] MEDS ORDERED: Naloxone 0.4 mg VIAL 0.4 mg/ml 1 ml VIAL IV PRN (15:37)
[2021-03-23] MEDS ORDERED: Acetaminophen IV 1 GM/100ML 100 ML IV ONE (15:37)
[2021-03-23] MEDS ORDERED: fentaNYL 100 mcg/2 ml 50 MCG/ML VIAL IV PRN (15:37)
[2021-03-23] MEDS ORDERED: Ondansetron 4 mg VIAL 2 MG/ML 2 ml VIAL IV PRN (15:37)
[2021-03-23] MEDS ORDERED: HYDROmorphone 1 MG/1 ML SYRINGE IV PRN (15:37)
[2021-03-23] MEDS ORDERED: DiMENhydriNATE IV 50 mg/ml 1 ml VIAL IV PUSH PRN (15:37)
[2021-03-23] MEDS ORDERED: DALBAVANCIN HCL (NF) 1,000 MG in D5W 250 ml BAG 250 ML IVPB ONE (16:00)
[2021-03-23] MEDS ORDERED: DALBAVANCIN HCL (NF) 500 MG/25 ML VIAL IVPB ONE (18:00)
[2021-03-24 06:53] LABS: ABS Eosinophils 0.5 10^3/ul (0-0.6); ABS Lymphocytes 3.4 10^3/ul (1.0-4.8); ABS Neutrophils 4.7 10^3/ul (1.5-7.7); Eosinophil % 5.6 %; Hematocrit 32 % (35-47); Hemoglobin 10.7 g/dL (12.0-16.0); Lymphocyte % 34.7 %; Mean Corpuscular HGB Conc 34 g/dL (31-36); Mean Corpuscular Hemoglobin 32 pg (27-31); Mean Corpuscular Volume 96 fL (80-97); Mean Platelet Volume 7.2 fL (7.4-10.4); Platelet Count 181 10^3/uL (150-450); Red Blood Count 3.31 10^6 /uL (3.70-4.87); Red Cell Distribution Width 16 % (10-15); White Blood Count 9.7 10^3/uL (3.5-10.8)
[2021-03-24 07:06] LABS: CRP High Sensitivity 10.31 mg/L (<2.00); Calcium 8.1 mg/dL (8.6-10.3); Potassium 4.9 mmol/L (3.5-5.0)
[2021-03-24] MEDS ORDERED: Amoxicillin/Clavul 500/125 TAB (Augmentin 500 mg tab) PO SCH (09:00)
[2021-03-24] MEDS ORDERED: Enoxaparin 30 MG/0.3 ML SYR SUBCUT SCH (09:00)
[2021-03-24] MEDS: Dextran 70/Hypromellose Tears Eye Drops 15 ml BTL (for Artificials Tears) BOTH EYES SCH (09:40)
[2021-03-24] MEDS: Magnesium Hydroxide LIQ 30 ML UDC PO SCH (09:41)
[2021-03-24] MEDS: DULoxetine DR 20 mg CAP PO SCH (09:49)
[2021-03-24] MEDS: Multivitamins/Minerals TAB PO SCH (09:50)
[2021-03-24 12:14] VITALS: BP 99/45
== END 2021-03-24 15:00 ==
LOC: AA 13:42 → INTOOBSV 13:42 → SSU 20:00
PROVIDERS: ADMIT Orthopaedic Surgery Hand Surgery; ATTEND Orthopaedic Surgery Hand Surgery

== ENCOUNTER 2021-04-06 11:44 | Inpatient (IN) ==
[2021-04-06 13:00] LABS: ABS Basophils 0.1 10^3/ul (0-0.2); ABS Eosinophils 0.5 10^3/ul (0-0.6); ABS Lymphocytes 2.5 10^3/ul (1.0-4.8); ABS Monocytes 0.6 10^3/ul (0-0.8); ABS Neutrophils 6.4 10^3/ul (1.5-7.7); Eosinophil % 4.6 %; Hematocrit 37 % (35-47); Hemoglobin 12.5 g/dL (12.0-16.0); Lymphocyte % 24.9 %; Mean Corpuscular HGB Conc 34 g/dL (31-36); Mean Corpuscular Hemoglobin 32 pg (27-31); Mean Corpuscular Volume 94 fL (80-97); Mean Platelet Volume 7.9 fL (7.4-10.4); Nucleated Red Blood Cells % 0.1; Platelet Count 198 10^3/uL (150-450); Red Blood Count 3.97 10^6 /uL (3.70-4.87); Red Cell Distribution Width 15 % (10-15); White Blood Count 10.1 10^3/uL (3.5-10.8)
[2021-04-06 13:11] LABS: Activated Partial Thrombo Time 34.1 seconds (26.0-38.0); INR 1.15 (0.86-1.15)
[2021-04-06 13:31] LABS: ALT 12 U/L (7-52); AST 21 U/L (13-39); Albumin/Globulin Ratio 1.5 (1-3); Alkaline Phosphatase 137 U/L (35-149); Blood Urea Nitrogen 41 mg/dL (6-24); C Reactive Protein 3.82 mg/L (<8.01); CO2 Carbon Dioxide 20 mmol/L (22-32); Calcium 9.3 mg/dL (8.6-10.3); Creatine Kinase 33 U/L (10-223); Globulin 2.7 g/dL (2-4); Glucose 106 mg/dL (70-100); Sodium 138 mmol/L (135-145); Total Protein 6.7 g/dL (6.4-8.9); eGFR CKD-EPI 57.9 (>60)
[2021-04-06 13:32] LABS: Anion Gap 6 mmol/L (2-11); Chloride 112 mmol/L (101-111)
[2021-04-06 13:36] LABS: Urine Appearance Clear; Urine Bilirubin Negative (Negative); Urine Blood Negative (Negative); Urine Color Yellow; Urine Glucose Negative (Negative); Urine Ketones Negative (Negative); Urine Nitrite Negative (Negative); Urine Protein Negative (Negative); Urine Specific Gravity 1.019 (1.002-1.030); Urine Urobilinogen Negative (Negative)
[2021-04-06] MEDS ORDERED: Lactated Ringers 1000 ml BAG 1,000 ML IV ONE (13:38)
[2021-04-06 13:39] LABS: Alcohol, S < 13 mg/dL (<13)
[2021-04-06 13:54] LABS: Urine Benzodiazepine Screen None Detected (None Detect); Urine Cannabinoids Screen None Detected (None Detect); Urine Opiates Screen None Detected (None Detect)
[2021-04-06] MEDS ORDERED: Thiamine 100 MG/ML 2 ml VIAL (200 mg) IM ONE (16:31)
[2021-04-06] MEDS ORDERED: Multivitamins/Minerals TAB PO SCH (17:00)
[2021-04-06] MEDS: Enoxaparin 40 MG/0.4 ML SYR SUBCUT SCH (17:22)
[2021-04-06] MEDS: Thiamine 100 MG/ML 2 ml VIAL (200 mg) IM SCH ×2 (18:15→21:43)
[2021-04-06 18:36] LABS: Vitamin B12 650 pg/mL (180-914)
[2021-04-06 18:37] LABS: Folate > 20.00 ng/mL (5.90-24.80)
[2021-04-06] MEDS: Amoxicillin/Clavul 500/125 TAB (Augmentin 500 mg tab) PO SCH (21:43)
[2021-04-07 06:20] LABS: Calcium 8.8 mg/dL (8.6-10.3); Magnesium 1.5 mg/dL (1.9-2.7); Potassium 4.2 mmol/L (3.5-5.0)
[2021-04-07] MEDS: Aspirin EC 325 mg TAB.EC PO SCH ×3 (06:23→20:39)
[2021-04-07] MEDS ORDERED: Magnesium Sulfate 2 gm BAG 2 GM/50 ML BAG IVPB ONE (07:42)
[2021-04-07] MEDS ORDERED: Multivitamins/Minerals TAB PO SCH (09:00)
[2021-04-07] MEDS: Thiamine 100 MG/ML 2 ml VIAL (200 mg) IM SCH ×3 (15:46→20:40)
[2021-04-07] MEDS: Amoxicillin/Clavul 500/125 TAB (Augmentin 500 mg tab) PO SCH ×2 (16:00→20:39)
[2021-04-07] MEDS: Multivitamins/Minerals TAB PO SCH (16:01)
[2021-04-07] MEDS: Enoxaparin 40 MG/0.4 ML SYR SUBCUT SCH (20:39)
[2021-04-08 06:12] LABS: Calcium 8.9 mg/dL (8.6-10.3); Magnesium 2.4 mg/dL (1.9-2.7); Potassium 4.4 mmol/L (3.5-5.0); eGFR CKD-EPI 42.2 (>60)
[2021-04-08] MEDS: Multivitamins/Minerals TAB PO SCH (08:21)
[2021-04-08] MEDS: Aspirin EC 325 mg TAB.EC PO SCH ×2 (08:21→19:38)
[2021-04-08] MEDS: Amoxicillin/Clavul 500/125 TAB (Augmentin 500 mg tab) PO SCH ×2 (08:21→19:39)
[2021-04-08] MEDS ORDERED: Lactated Ringers 1000 ml BAG 1,000 ML IV SCH (11:00)
[2021-04-08] MEDS ORDERED: LORazepam 2 mg VIAL 1 ml IV PUSH PRN (16:25)
[2021-04-08] MEDS ORDERED: Lorazepam PYXIS KEY PRN (16:25)
[2021-04-08] MEDS: Enoxaparin 40 MG/0.4 ML SYR SUBCUT SCH (19:39)
[2021-04-09 05:16] LABS: Calcium 8.8 mg/dL (8.6-10.3); Potassium 4.3 mmol/L (3.5-5.0); eGFR CKD-EPI 61.4 (>60)
[2021-04-09] MEDS: Aspirin EC 325 mg TAB.EC PO SCH ×2 (08:45→22:14)
[2021-04-09] MEDS: Multivitamins/Minerals TAB PO SCH (08:45)
[2021-04-09] MEDS: Amoxicillin/Clavul 500/125 TAB (Augmentin 500 mg tab) PO SCH ×2 (08:52→22:14)
[2021-04-09] MEDS: Enoxaparin 40 MG/0.4 ML SYR SUBCUT SCH (22:17)
[2021-04-10] MEDS: Amoxicillin/Clavul 500/125 TAB (Augmentin 500 mg tab) PO SCH ×2 (09:55→21:21)
[2021-04-10] MEDS: Multivitamins/Minerals TAB PO SCH (09:56)
[2021-04-10] MEDS: Aspirin EC 325 mg TAB.EC PO SCH ×2 (09:57→21:20)
[2021-04-10 18:53] LABS: Hematocrit 36 % (35-47); Hemoglobin 11.8 g/dL (12.0-16.0); Mean Corpuscular HGB Conc 33 g/dL (31-36); Mean Corpuscular Hemoglobin 31 pg (27-31); Mean Corpuscular Volume 94 fL (80-97); Mean Platelet Volume 8.3 fL (7.4-10.4); Platelet Count 198 10^3/uL (150-450); Red Blood Count 3.82 10^6 /uL (3.70-4.87); Red Cell Distribution Width 15 % (10-15); White Blood Count 12.1 10^3/uL (3.5-10.8)
[2021-04-10] MEDS: Enoxaparin 40 MG/0.4 ML SYR SUBCUT SCH (21:20)
[2021-04-11 07:04] LABS: Calcium 8.7 mg/dL (8.6-10.3); eGFR CKD-EPI 77.7 (>60)
[2021-04-11 08:11] LABS: Magnesium 1.6 mg/dL (1.9-2.7)
[2021-04-11] MEDS ORDERED: Magnesium Sulfate 2 gm BAG 2 GM/50 ML BAG IVPB ONE (10:05)
[2021-04-11] MEDS: Aspirin EC 325 mg TAB.EC PO SCH (10:26)
[2021-04-11] MEDS: Multivitamins/Minerals TAB PO SCH (10:27)
[2021-04-11] MEDS: Amoxicillin/Clavul 500/125 TAB (Augmentin 500 mg tab) PO SCH (10:27)
[2021-04-11 11:30] VITALS: BP 105/74
== END 2021-04-11 14:00 | DRG 885 ==
LOC: ED 11:44 → SUATTDRO 17:13 → EDHOLD 17:13 → MEDTELE 20:43
PROVIDERS: ADMIT Student in an Organized Health Care Education/Training Program; ATTEND Internal Medicine

== ENCOUNTER 2021-04-11 16:15 | Inpatient (IN) ==
[2021-04-11 19:43] LABS: ABS Basophils 0.1 10^3/ul (0-0.2); ABS Eosinophils 0.6 10^3/ul (0-0.6); ABS Lymphocytes 4.1 10^3/ul (1.0-4.8); ABS Monocytes 1.2 10^3/ul (0-0.8); ABS Neutrophils 8.9 10^3/ul (1.5-7.7); Eosinophil % 3.8 %; Hematocrit 37 % (35-47); Hemoglobin 12.5 g/dL (12.0-16.0); Lymphocyte % 27.5 %; Mean Corpuscular HGB Conc 34 g/dL (31-36); Mean Corpuscular Hemoglobin 32 pg (27-31); Mean Corpuscular Volume 94 fL (80-97); Mean Platelet Volume 8.5 fL (7.4-10.4); Platelet Count 211 10^3/uL (150-450); Red Cell Distribution Width 15 % (10-15); White Blood Count 14.8 10^3/uL (3.5-10.8)
[2021-04-11 20:00] LABS: ALT 11 U/L (7-52); AST 20 U/L (13-39); Albumin 4.1 g/dL (3.2-5.2); Albumin/Globulin Ratio 1.4 (1-3); Alkaline Phosphatase 126 U/L (35-149); Anion Gap 8 mmol/L (2-11); Blood Urea Nitrogen 26 mg/dL (6-24); CO2 Carbon Dioxide 23 mmol/L (22-32); Calcium 9.1 mg/dL (8.6-10.3); Chloride 107 mmol/L (101-111); Globulin 2.9 g/dL (2-4); Glucose 108 mg/dL (70-100); Potassium 4.2 mmol/L (3.5-5.0); Sodium 138 mmol/L (135-145); eGFR CKD-EPI 76.6 (>60)
[2021-04-11 20:35] LABS: Alcohol, S < 13 mg/dL (<13)
[2021-04-11 23:02] LABS: Urine Appearance Clear; Urine Bilirubin Negative (Negative); Urine Blood Negative (Negative); Urine Color Yellow; Urine Glucose Negative (Negative); Urine Ketones Negative (Negative); Urine Nitrite Negative (Negative); Urine Protein Negative (Negative); Urine Specific Gravity 1.014 (1.002-1.030); Urine Urobilinogen Negative (Negative)
[2021-04-11 23:05] LABS: Urine Bacteria 1+ (Absent); Urine Red Blood Cell Trace(0-2/hpf) (Absent); Urine Squamous Epithelial Cell Present (Absent); Urine White Blood Cell Trace(0-5/hpf) (Absent)
[2021-04-11 23:22] LABS: Urine Benzodiazepine Screen None Detected (None Detect); Urine Cannabinoids Screen None Detected (None Detect); Urine Opiates Screen None Detected (None Detect)
[2021-04-12 09:48] LABS: TSH Ultra Thyroid Stim Horm 1.71 mcIU/mL (0.34-5.60)
[2021-04-12 09:50] LABS: Free T4 0.82 ng/dL (0.61-1.12)
[2021-04-12 09:59] LABS: Vitamin B12 721 pg/mL (180-914)
[2021-04-12 10:03] LABS: Vitamin D Total 25(OH) 49.8 ng/mL (20-50)
[2021-04-12] MEDS ORDERED: Thiamine 100 MG/ML 2 ml VIAL 100 MG, Folic Acid IV 1 MG, Multiple Vitamin IV ADULT 10 M... IV ONE (11:00)
[2021-04-12 11:48] LABS: C Reactive Protein 2.28 mg/L (<8.01)
[2021-04-12] MEDS ORDERED: LIDOCAINE 4% TOPICAL PRN (13:09)
[2021-04-12] MEDS ORDERED: Magnesium Hydroxide LIQ 30 ML UDC PO PRN (13:09)
[2021-04-12] MEDS ORDERED: Calcium Carb (TUMS) 500 mg CHEW TAB PO PRN (14:23)
[2021-04-12] MEDS ORDERED: Lidocaine PATCH 5% PATCH TRANSDERM PRN (14:40)
[2021-04-12] MEDS ORDERED: ASPIRIN 325 MG PO SCH (21:00)
[2021-04-12] MEDS: guaiFENesin 100 mg/5 ml LIQ unit dose cup PO SCH (21:52)
[2021-04-12] MEDS: Amoxicillin/Clavul 500/125 TAB (Augmentin 500 mg tab) PO SCH (22:38)
[2021-04-13] MEDS: Lidocaine Patch REMOVE NOTE PATCH OFF SCH ×2 (04:37→20:24)
[2021-04-13 06:13] LABS: ABS Basophils 0.1 10^3/ul (0-0.2); ABS Eosinophils 0.9 10^3/ul (0-0.6); ABS Lymphocytes 4.6 10^3/ul (1.0-4.8); ABS Monocytes 1.3 10^3/ul (0-0.8); ABS Neutrophils 4.7 10^3/ul (1.5-7.7); Eosinophil % 7.5 %; Hematocrit 34 % (35-47); Hemoglobin 11.6 g/dL (12.0-16.0); Lymphocyte % 40.2 %; Mean Corpuscular HGB Conc 34 g/dL (31-36); Mean Corpuscular Hemoglobin 32 pg (27-31); Mean Corpuscular Volume 95 fL (80-97); Mean Platelet Volume 8.8 fL (7.4-10.4); Platelet Count 181 10^3/uL (150-450); Red Blood Count 3.62 10^6 /uL (3.70-4.87); Red Cell Distribution Width 15 % (10-15); White Blood Count 11.5 10^3/uL (3.5-10.8)
[2021-04-13 06:38] LABS: Albumin 3.7 g/dL (3.2-5.2); Albumin/Globulin Ratio 1.5 (1-3); Calcium 8.6 mg/dL (8.6-10.3); Globulin 2.5 g/dL (2-4); Total Bilirubin 0.4 mg/dL (0.2-1.0); Total Protein 6.2 g/dL (6.4-8.9); eGFR CKD-EPI 53.1 (>60)
[2021-04-13] MEDS ORDERED: Thiamine 100 MG/ML 2 ml VIAL (200 mg) IV SCH (09:00)
[2021-04-13] MEDS ORDERED: DULoxetine DR 20 mg CAP PO SCH (09:00)
[2021-04-13] MEDS ORDERED: PEG PROPYLENE GLYCOL BOTH EYES SCH (09:00)
[2021-04-13] MEDS: guaiFENesin 100 mg/5 ml LIQ unit dose cup PO SCH ×2 (09:23→20:22)
[2021-04-13] MEDS: Senna TAB 8.6 mg TAB PO SCH (09:24)
[2021-04-13] MEDS: Fluticasone NASAL SPRAY 50MCG 16 gm SPRAY BTL INTRANASAL SCH (09:25)
[2021-04-13] MEDS: Multivitamins/Minerals TAB PO SCH (09:25)
[2021-04-13] MEDS: Amoxicillin/Clavul 500/125 TAB (Augmentin 500 mg tab) PO SCH ×2 (09:25→20:15)
[2021-04-13] MEDS: Thiamine IV 100 MG in NS 0.9% 50 ML Q24H IV SCH (12:03)
[2021-04-13] MEDS ORDERED: Enoxaparin 40 MG/0.4 ML SYR SUBCUT SCH (19:30)
[2021-04-14 06:29] LABS: ABS Basophils 0.1 10^3/ul (0-0.2); ABS Eosinophils 1.1 10^3/ul (0-0.6); ABS Lymphocytes 4.3 10^3/ul (1.0-4.8); ABS Monocytes 1.1 10^3/ul (0-0.8); ABS Neutrophils 4.6 10^3/ul (1.5-7.7); Eosinophil % 9.8 %; Hematocrit 33 % (35-47); Lymphocyte % 38.6 %; Mean Corpuscular HGB Conc 34 g/dL (31-36); Mean Corpuscular Hemoglobin 32 pg (27-31); Mean Corpuscular Volume 95 fL (80-97); Mean Platelet Volume 8.5 fL (7.4-10.4); Platelet Count 169 10^3/uL (150-450); Red Blood Count 3.45 10^6 /uL (3.70-4.87); Red Cell Distribution Width 15 % (10-15); White Blood Count 11.1 10^3/uL (3.5-10.8)
[2021-04-14 06:42] LABS: Calcium 8.4 mg/dL (8.6-10.3); eGFR CKD-EPI 50.9 (>60)
[2021-04-14] MEDS: guaiFENesin 100 mg/5 ml LIQ unit dose cup PO SCH ×2 (08:57→21:08)
[2021-04-14] MEDS: Multivitamins/Minerals TAB PO SCH (09:00)
[2021-04-14] MEDS: Senna TAB 8.6 mg TAB PO SCH (09:00)
[2021-04-14] MEDS: Amoxicillin/Clavul 500/125 TAB (Augmentin 500 mg tab) PO SCH ×2 (09:00→21:08)
[2021-04-14] MEDS: Dextran 70/Hypromellose Tears Eye Drops 15 ml BTL (for Artificials Tears) BOTH EYES SCH (09:01)
[2021-04-14] MEDS: Fluticasone NASAL SPRAY 50MCG 16 gm SPRAY BTL INTRANASAL SCH (09:01)
[2021-04-14] MEDS: Thiamine IV 100 MG in NS 0.9% 50 ML Q24H IV SCH (09:01)
[2021-04-14] MEDS: NS 0.9% 1000 ml BAG 1,000 ML IV SCH (10:32)
[2021-04-14] MEDS ORDERED: Enoxaparin 40 MG/0.4 ML SYR SUBCUT SCH (21:00)
[2021-04-14] MEDS ORDERED: Enoxaparin 30 MG/0.3 ML SYR SUBCUT SCH (21:00)
[2021-04-14] MEDS: Lidocaine Patch REMOVE NOTE PATCH OFF SCH (21:17)
[2021-04-15] MEDS: Dextran 70/Hypromellose Tears Eye Drops 15 ml BTL (for Artificials Tears) BOTH EYES SCH (08:50)
[2021-04-15] MEDS: Fluticasone NASAL SPRAY 50MCG 16 gm SPRAY BTL INTRANASAL SCH (08:50)
[2021-04-15] MEDS: Multivitamins/Minerals TAB PO SCH (08:51)
[2021-04-15] MEDS: Amoxicillin/Clavul 500/125 TAB (Augmentin 500 mg tab) PO SCH ×2 (08:51→21:47)
[2021-04-15] MEDS: guaiFENesin 100 mg/5 ml LIQ unit dose cup PO SCH ×2 (08:51→21:47)
[2021-04-15] MEDS: Senna TAB 8.6 mg TAB PO SCH (08:51)
[2021-04-15 09:03] LABS: ABS Eosinophils 0.9 10^3/ul (0-0.6); ABS Lymphocytes 3.1 10^3/ul (1.0-4.8); ABS Monocytes 0.9 10^3/ul (0-0.8); ABS Neutrophils 3.6 10^3/ul (1.5-7.7); Eosinophil % 10.8 %; Hematocrit 30 % (35-47); Hemoglobin 10.2 g/dL (12.0-16.0); Mean Corpuscular HGB Conc 34 g/dL (31-36); Mean Corpuscular Hemoglobin 33 pg (27-31); Mean Corpuscular Volume 97 fL (80-97); Mean Platelet Volume 8.3 fL (7.4-10.4); Platelet Count 157 10^3/uL (150-450); Red Blood Count 3.13 10^6 /uL (3.70-4.87); Red Cell Distribution Width 15 % (10-15); White Blood Count 8.6 10^3/uL (3.5-10.8)
[2021-04-15 09:16] LABS: Albumin 3.1 g/dL (3.2-5.2); Albumin/Globulin Ratio 1.4 (1-3); Calcium 8.2 mg/dL (8.6-10.3); Globulin 2.2 g/dL (2-4); Potassium 4.4 mmol/L (3.5-5.0); Total Bilirubin 0.3 mg/dL (0.2-1.0); Total Protein 5.3 g/dL (6.4-8.9); eGFR CKD-EPI 62.9 (>60)
[2021-04-15] MEDS: Thiamine IV 100 MG in NS 0.9% 50 ML Q24H IV SCH (09:58)
[2021-04-15] MEDS: Enoxaparin 40 MG/0.4 ML SYR SUBCUT SCH (15:29)
[2021-04-15 15:42] LABS: Ferritin 21.8 ng/mL (11-307)
[2021-04-15] MEDS: Lidocaine Patch REMOVE NOTE PATCH OFF SCH (21:49)
[2021-04-15] MEDS: NS 0.9% 1000 ml BAG 1,000 ML IV SCH (22:21)
[2021-04-16 06:56] LABS: ABS Eosinophils 0.9 10^3/ul (0-0.6); ABS Lymphocytes 3.5 10^3/ul (1.0-4.8); ABS Monocytes 0.8 10^3/ul (0-0.8); ABS Neutrophils 3.3 10^3/ul (1.5-7.7); Hematocrit 29 % (35-47); Hemoglobin 9.9 g/dL (12.0-16.0); Lymphocyte % 40.6 %; Mean Corpuscular HGB Conc 34 g/dL (31-36); Mean Corpuscular Hemoglobin 33 pg (27-31); Mean Corpuscular Volume 96 fL (80-97); Mean Platelet Volume 8.3 fL (7.4-10.4); Platelet Count 146 10^3/uL (150-450); Red Blood Count 3.04 10^6 /uL (3.70-4.87); Red Cell Distribution Width 15 % (10-15); White Blood Count 8.5 10^3/uL (3.5-10.8)
[2021-04-16 07:09] LABS: Calcium 8.2 mg/dL (8.6-10.3); Magnesium 1.7 mg/dL (1.9-2.7); Potassium 4.7 mmol/L (3.5-5.0); eGFR CKD-EPI 66.9 (>60)
[2021-04-16] MEDS ORDERED: Magnesium Sulfate IV 1GM/100ML 1 GM/100 ML BAG IV ONE (08:18)
[2021-04-16] MEDS: Multivitamins/Minerals TAB PO SCH (09:01)
[2021-04-16] MEDS: Senna TAB 8.6 mg TAB PO SCH (09:01)
[2021-04-16] MEDS: Amoxicillin/Clavul 500/125 TAB (Augmentin 500 mg tab) PO SCH ×2 (09:01→22:37)
[2021-04-16] MEDS: guaiFENesin 100 mg/5 ml LIQ unit dose cup PO SCH ×2 (09:02→22:40)
[2021-04-16] MEDS: Fluticasone NASAL SPRAY 50MCG 16 gm SPRAY BTL INTRANASAL SCH (09:02)
[2021-04-16] MEDS: Dextran 70/Hypromellose Tears Eye Drops 15 ml BTL (for Artificials Tears) BOTH EYES SCH (09:02)
[2021-04-16] MEDS: Thiamine IV 100 MG in NS 0.9% 50 ML Q24H IV SCH (12:38)
[2021-04-16] MEDS: Enoxaparin 40 MG/0.4 ML SYR SUBCUT SCH (16:53)
[2021-04-16] MEDS: Lidocaine Patch REMOVE NOTE PATCH OFF SCH (23:01)
[2021-04-17] MEDS: Amoxicillin/Clavul 500/125 TAB (Augmentin 500 mg tab) PO SCH ×2 (10:17→20:17)
[2021-04-17] MEDS: Senna TAB 8.6 mg TAB PO SCH (10:17)
[2021-04-17] MEDS: Multivitamins/Minerals TAB PO SCH (10:18)
[2021-04-17] MEDS: Thiamine IV 100 MG in NS 0.9% 50 ML Q24H IV SCH (10:20)
[2021-04-17] MEDS: guaiFENesin 100 mg/5 ml LIQ unit dose cup PO SCH ×2 (10:26→20:36)
[2021-04-17] MEDS: Fluticasone NASAL SPRAY 50MCG 16 gm SPRAY BTL INTRANASAL SCH (12:20)
[2021-04-17] MEDS: Dextran 70/Hypromellose Tears Eye Drops 15 ml BTL (for Artificials Tears) BOTH EYES SCH (12:21)
[2021-04-17] MEDS: Enoxaparin 40 MG/0.4 ML SYR SUBCUT SCH (14:05)
[2021-04-17] MEDS: Lidocaine Patch REMOVE NOTE PATCH OFF SCH (20:19)
[2021-04-18 08:16] LABS: Hematocrit 31 % (35-47); Hemoglobin 10.5 g/dL (12.0-16.0); Mean Corpuscular HGB Conc 34 g/dL (31-36); Mean Corpuscular Hemoglobin 32 pg (27-31); Mean Corpuscular Volume 95 fL (80-97); Mean Platelet Volume 8.4 fL (7.4-10.4); Platelet Count 157 10^3/uL (150-450); Red Blood Count 3.26 10^6 /uL (3.70-4.87); Red Cell Distribution Width 15 % (10-15); White Blood Count 9.8 10^3/uL (3.5-10.8)
[2021-04-18 08:34] LABS: Calcium 8.4 mg/dL (8.6-10.3); Magnesium 1.7 mg/dL (1.9-2.7); Potassium 4.6 mmol/L (3.5-5.0)
[2021-04-18 08:40] LABS: eGFR CKD-EPI 53.7 (>60)
[2021-04-18] MEDS: Senna TAB 8.6 mg TAB PO SCH (09:09)
[2021-04-18] MEDS: Multivitamins/Minerals TAB PO SCH (09:10)
[2021-04-18] MEDS: Amoxicillin/Clavul 500/125 TAB (Augmentin 500 mg tab) PO SCH (09:10)
[2021-04-18] MEDS: Fluticasone NASAL SPRAY 50MCG 16 gm SPRAY BTL INTRANASAL SCH (09:12)
[2021-04-18] MEDS: guaiFENesin 100 mg/5 ml LIQ unit dose cup PO SCH (09:12)
[2021-04-18] MEDS: Dextran 70/Hypromellose Tears Eye Drops 15 ml BTL (for Artificials Tears) BOTH EYES SCH (09:12)
[2021-04-18] MEDS: Thiamine IV 100 MG in NS 0.9% 50 ML Q24H IV SCH (11:45)
[2021-04-18 12:20] VITALS: BP 114/79
[2021-04-18 15:10] LABS: % Iron Saturation 11 % (14 - 50); Total Iron Binding Capacity 299 mcg/dL (250 - 400); Transferrin 253 mg/dL (200 - 360)
== END 2021-04-18 15:35 | DRG 885 ==
LOC: ED 16:15 → SUATTDRO 04-12 11:03 → EDHOLD 04-12 11:03 → MEDTELE 04-12 14:16
PROVIDERS: ADMIT Internal Medicine; ATTEND Internal Medicine